=== PATIENT | female | born 1975 | race African-American/Black ===

== ENCOUNTER 2018-06-04 08:25 | Emergency (ER) | payer OTHER ==
[2018-06-04] MEDS ORDERED: cefTRIAXone\\ROCEPHIN 2 GM VIAL ONE (08:46)
[2018-06-04] MEDS ORDERED: Lidocaine 1% PF 5 ML VIAL ONE (08:47)
[2018-06-04] MEDS ORDERED: Ketorolac Tromethamine 60 MG/2 ML VIAL ONE (08:55)
== END 2018-06-04 09:23 | disposition home or self-care (01) ==
LOC: SCSER 08:25
DX: M26.621 Arthralgia of right temporomandibular joint (principal); E11.9 Type 2 diabetes mellitus without complications; I10 Essential (primary) hypertension; F17.210 Nicotine dependence, cigarettes, uncomplicated; Z79.84 Long term (current) use of oral hypoglycemic drugs; Z79.899 Other long term (current) drug therapy
CPT/HCPCS: 96372; J0696; J1885; J2001